=== PATIENT | female | born 1945 | race Caucasian/White ===

== ENCOUNTER → 2016-11-29 | Outpatient (CLI) | payer OTHER ==
[~2016-11-29] MED LIST: ATARAX PO; CALCIUM + D 6001 TA1 PO; METFORMIN HCL500 M1 PO; PHENERGAN PO
--- NOTE | ~2016-11-29 | MY29 ---
[facility] A Service of [facility] & [facility] RADIOLOGY TEXT RESULTS PATIENT: MELVIN HAYNES LOCATION: [facility] : 41 UNIT #: [id number] AGE: [address]: Renay Celaya SEX: F ORDER DR: [id number] [facility] [address] [place], [place] [address] [id number] O MR#: [id number] Acc #: [id number] NAME: MELVIN HAYNES : 1945 SEX: F STUDY DATE/TIME: 11/29/2016 12:47 UNIT: [facility] ROOM: STUDY DESCRIPTION: MY JAYME SCREENING W/ CAD BILAT Attending Physician: Renay Celaya A.P.R.N. Referring Physician: Renay Celaya A.P.R.N. Ordering Physician: Renay Celaya A.P.R.N. Primary Care Physician: Renay Celaya A.P.R.N. MEDICAL IMAGING REPORT This report is preliminary unless electronic signature is present EXAM Digital screening mammogram, 11/29/2016, [facility]. HISTORY 71-year-old woman; positive family history, sister age 48. Annual screening. COMPARISON Mammograms date to 12/12/2005, with most recent 10/05/2015. FINDINGS Digital imaging of each breast was completed, utilizing screening protocol. Review includes FDA-approved CAD device. Breast parenchyma remains mildly dense with a generalized small nodular pattern in each breast. I see no breast mass. There are no interval occurring microcalcifications and no suspicious architectural distortion. IMPRESSION Stable benign mammogram. Annual screening recommended. Patients over the age of 40 are entered into a reminder system with target due date for the next mammogram. A result letter will also be sent to the patient. BIRADS: 2 Benign finding. Dictated by... Balaji Herron M.D. THIS IS AN ELECTRONICALLY VERIFIED REPORT Balaji Herron M.D. at 11/29/2016 3:[address] [facility] A Service of [facility] & [facility] RADIOLOGY TEXT RESULTS PATIENT: MELVIN HAYNES LOCATION: [facility] #: [id number] : 41 UNIT #: [id number] AGE: [address]: Renay Celaya SEX: F ORDER DR: Natalie TD: 11/29/2016 15:03 JOB #: [id number] MEDICAL IMAGING REPORT Page 1 of 1 COPY
== END | disposition home or self-care (01) ==
LOC: CWCC 12:23
DX: Z12.31 Encounter for screening mammogram for malignant neoplasm of breast (principal); Z80.3 Family history of malignant neoplasm of breast
CPT/HCPCS: G0202